=== PATIENT | male | born 1980 ===

== ENCOUNTER 2019-06-20 13:44 | Emergency (ER) | payer OTHER ==
[~2019-06-20] VITALS: Ht 170.2 cm; Wt 115.2 kg
[2019-06-20] MEDS ORDERED: ZYPREXA10 MG PO (14:30)
--- OUTSIDE RECORDS SUMMARY | 2019-06-20 16:24 | XMS ---
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 Skinny VISIT COUNT (12 MO.) [address] TOTAL 4 NOTE: Visits indicate total known visits. 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
== END 2019-06-20 18:15 | disposition short-term general hospital (02) ==
LOC: ED 13:44
DX: F22 Delusional disorders (principal)
CPT/HCPCS: 80053; 80176; 81001; 84443; 85025; 99285; G0480